=== PATIENT | female | born 1980 | race Caucasian/White ===

== ENCOUNTER → 2024-07-28 | Outpatient (CLI) | payer OTHER | END | disposition home or self-care (01) | LOC: RAD 16:03 | PROVIDERS: ATTEND Nurse Practitioner Family | DX: S82.62XA Displaced fracture of lateral malleolus of left fibula, initial encounter for closed fracture (principal); M77.32 Calcaneal spur, left foot; M79.89 Other specified soft tissue disorders; M25.472 Effusion, left ankle; X58.XXXA Exposure to other specified factors, initial encounter; Y93.89 Activity, other specified; Y92.89 Other specified places as the place of occurrence of the external cause; Y99.8 Other external cause status | CPT/HCPCS: 73610-LT ==

== ENCOUNTER → 2024-12-24 | Outpatient (CLI) | payer OTHER | END | disposition home or self-care (01) | LOC: RAD 09:28 | PROVIDERS: ATTEND Nurse Practitioner | DX: I26.99 Other pulmonary embolism without acute cor pulmonale (principal); R06.89 Other abnormalities of breathing | CPT/HCPCS: 71275; Q9965 ==